=== PATIENT | female | born 1950 | race Caucasian/White ===

== ENCOUNTER → 2017-07-16 | Outpatient (CLI) | payer MEDICARE ==
[~2017-07-16] MED LIST: ATOR10 PO; BENA1TAB19 PO; CETI10CA5 PO; GADOBENATE DIMEGLUMINE 20 ML IV ONE; OMEP20TA25 PO; ROPI0.255 PO; ROPI0.5T5 PO
== END | disposition home or self-care (01) ==
LOC: RAH 10:28
PROVIDERS: ATTEND Physical Medicine & Rehabilitation
DX: D17.23 Benign lipomatous neoplasm of skin and subcutaneous tissue of right leg (principal); M16.11 Unilateral primary osteoarthritis, right hip; M25.751 Osteophyte, right hip; R60.0 Localized edema
CPT/HCPCS: 73723; A9577

== ENCOUNTER → 2017-08-16 | Outpatient (CLI) | payer MEDICARE ==
[~2017-08-16] MED LIST changes: -GADOBENATE DIMEGLUMINE 20 ML IV ONE
== END | disposition home or self-care (01) ==
LOC: RAH 13:56
PROVIDERS: ATTEND Internal Medicine
DX: Z01.811 Encounter for preprocedural respiratory examination (principal); I10 Essential (primary) hypertension
CPT/HCPCS: 71046

== ENCOUNTER → 2018-06-17 | Outpatient (CLI) | payer MEDICARE ==
[~2018-06-17] MED LIST changes: -ROPI0.255 PO; +ROPI0.257 PO
== END | disposition home or self-care (01) ==
LOC: RAH 13:42
PROVIDERS: ATTEND Internal Medicine
DX: Z12.31 Encounter for screening mammogram for malignant neoplasm of breast (principal)
CPT/HCPCS: 77067